=== PATIENT | female | born 2000 | race Caucasian/White ===

== ENCOUNTER 2020-05-07 20:11 | Emergency (ER) | payer BC ==
[~2020-05-07] VITALS: Ht 165.1 cm; Wt 46.8 kg
[2020-05-07 20:20] VITALS: BP 132/79; TEMP 98.9
[2020-05-07] MEDS ORDERED: PROZAC 20MG20 MG PO (20:56)
[2020-05-07] MEDS ORDERED: BUSPAR DIVIDOSE15 MG PO (20:56)
[2020-05-07] MEDS ORDERED: ADDERALL20 MG PO (20:57)
[2020-05-07 21:06] VITALS: PULSE 99
== END 2020-05-07 21:10 | disposition home or self-care (01) ==
LOC: COL.ER 20:11
DX: S61.412A Laceration without foreign body of left hand, initial encounter (principal); F41.9 Anxiety disorder, unspecified; W26.0XXA Contact with knife, initial encounter; Y92.009 Unspecified place in unspecified non-institutional (private) residence as the place of occurrence of the external cause